=== PATIENT | female | born 1945 | race Caucasian/White ===

== ENCOUNTER 2021-11-28 15:16 | Outpatient (REF) | payer MEDICARE, SELFPAY ==
[2021-11-30 11:22] LABS: COVID-19 RT-PCR UVMMC Result Negative (Negative)
== END 2021-11-28 15:17 | disposition home or self-care (01) ==
LOC: LBN 15:16
PROVIDERS: Visit Provider Physician Assistant
DX: Z20.822 Contact with and (suspected) exposure to COVID-19 (principal)
CPT/HCPCS: U0003; U0005